=== PATIENT | female | born 1970 | race African-American/Black ===

== ENCOUNTER 2020-04-26 10:17 | Emergency (ER) | payer MEDICAID ==
[~2020-04-26] VITALS: Ht 167.6 cm; Wt 127.0 kg
[2020-04-26] MEDS ORDERED: ONDANSETRON HCL 4MG/2ML INJ IV STA (11:36)
[2020-04-26] MEDS ORDERED: VISCOUS LIDOCAINE 2% 15 ML UDC PO STA (11:36)
[2020-04-26] MEDS ORDERED: MAGNESIUM/ALUMINUM HYDROXIDE/SIMETHICONE 30ML UDC PO STA (11:36)
[2020-04-26] MEDS ORDERED: DICYCLOMINE 10 MG/5 ML ORAL SYR PO STA (11:36)
[2020-04-26 11:45] LABS: HEMOGLOBIN. 14.3 g/dL (12.0-16.0); MEAN CORPUSCULAR HEMOGLOBIN 27.3 pg (28.0-32.0); MEAN CORPUSCULAR VOLUME 83.8 fL (81.0-99.0); MEAN PLATELET VOLUME 8.6 fl (7.4-10.4); PLATELET 225 x1000/uL (130-400); RED BLOOD CELL COUNT 5.25 mill/uL (4.2-5.4); RED CELL DISTRIBUTION WIDTH 14.2 % (11.6-14.6)
[2020-04-26 11:49] LABS: CHLORIDE 108 mEq/L (98-107)
[2020-04-26 11:53] LABS: INR 1.1; PROTHROMBIN TIME 11.2 sec (9.6-11.0)
[2020-04-26 11:53] LABS: CLARITY URINE CLOUDY (CLEAR); COLOR URINE YELLOW (YELLOW); KETONES URINE NEGATIVE (NEGATIVE); LEUKOCYTE ESTERASE URINE 3+ (NEGATIVE); NITRITE URINE NEGATIVE (NEGATIVE); OCCULT BLOOD URINE NEGATIVE (NEGATIVE); PROTEIN URINE NEGATIVE (NEGATIVE); SPECIFIC GRAVITY URINE 1.022 (1.005-1.030)
[2020-04-26 12:02] LABS: PLATELET ESTIMATE NORMAL
[2020-04-26 12:10] VITALS: BP 125/78
[2020-04-26] MEDS ORDERED: POLY17PO3 MT (14:14)
[2020-04-26] MEDS ORDERED: NITR-87 MT (14:14)
[2020-04-26] MEDS ORDERED: PHEN-815 MT (14:14)
== END 2020-04-26 14:48 | disposition home or self-care (01) ==
LOC: ER 10:17
DX: N30.00 Acute cystitis without hematuria (principal); K59.00 Constipation, unspecified; E78.00 Pure hypercholesterolemia, unspecified; J45.909 Unspecified asthma, uncomplicated; I69.351 Hemiplegia and hemiparesis following cerebral infarction affecting right dominant side; F12.10 Cannabis abuse, uncomplicated
CPT/HCPCS: 36415; 80053; 81003; 83690; 85025; 85610; 87086; 93005; 96374; 99284; J2405